=== PATIENT | male | born 1975 | race Caucasian/White ===

== ENCOUNTER 2017-09-12 13:13 | Emergency (ER) | payer MEDICAID ==
[2017-09-12] MEDS: METOCLOPRAMIDE 10 MG TAB PO (14:14)
[2017-09-12] MEDS: KETOROLAC TROMETHAMINE 10 MG TAB PO (14:14)
== END 2017-09-12 15:23 | disposition home or self-care (01) ==
LOC: M ED 13:13
DX: Z76.0 Encounter for issue of repeat prescription (principal); G44.209 Tension-type headache, unspecified, not intractable; I10 Essential (primary) hypertension; J45.909 Unspecified asthma, uncomplicated; Z72.0 Tobacco use; Z79.899 Other long term (current) drug therapy
CPT/HCPCS: 99283

== ENCOUNTER 2017-11-07 20:20 | Emergency (ER) | payer MEDICAID ==
[2017-11-07 22:10] LABS: ALBUMIN 3.8 GM/DL (3.2-5.2); ALBUMIN/GLOBULIN RATIO 1.36 (1.00-1.93); ALKALINE PHOSPHATASE 97 U/L (45-117); ALT/SGPT 30 U/L (12-78); ANION GAP 6 MEQ/L (8-16); AST/SGOT 17 U/L (7-37); BILIRUBIN,DIRECT < 0.1 MG/DL (0.0-0.2); BILIRUBIN,TOTAL 0.4 MG/DL (0.2-1.0); BLOOD UREA NITROGEN 17 MG/DL (7-18); CALCIUM LEVEL 8.4 MG/DL (8.5-10.1); CARBON DIOXIDE LEVEL 29 MEQ/L (21-32); CHLORIDE LEVEL 109 MEQ/L (98-107); CPK CREATINE PHOSPHOKINASE 170 U/L (39-308); CREATININE FOR GFR 0.92 MG/DL (0.70-1.30); GLOMERULAR FILTRATION RATE > 60.0 (>60); GLUCOSE, FASTING 89 MG/DL (70-100); SODIUM LEVEL 144 MEQ/L (136-145); TOTAL PROTEIN 6.6 GM/DL (6.4-8.2)
[2017-11-07] MEDS: LISINOPRIL 5 MG TAB PO (22:27)
== END 2017-11-07 22:38 | disposition home or self-care (01) ==
LOC: M ED 20:20
DX: R60.0 Localized edema (principal); I10 Essential (primary) hypertension; Z76.0 Encounter for issue of repeat prescription; J45.909 Unspecified asthma, uncomplicated; Z72.0 Tobacco use; Z79.899 Other long term (current) drug therapy
CPT/HCPCS: 82550

== ENCOUNTER 2017-11-16 01:57 | Emergency (ER) | payer MEDICAID ==
[2017-11-16] MEDS ORDERED: cloNIDine 0.2 MG TAB PO (04:30)
== END 2017-11-16 05:45 | disposition home or self-care (01) ==
LOC: M ED 01:57
DX: R22.43 Localized swelling, mass and lump, lower limb, bilateral (principal); I10 Essential (primary) hypertension; J45.909 Unspecified asthma, uncomplicated; Z79.899 Other long term (current) drug therapy
CPT/HCPCS: 99283

== ENCOUNTER 2017-11-30 17:50 | Emergency (ER) | payer MEDICAID | END 2017-11-30 23:46 | disposition home or self-care (01) | LOC: M ED 17:50 | DX: M79.89 Other specified soft tissue disorders (principal); I10 Essential (primary) hypertension; J45.909 Unspecified asthma, uncomplicated; Z72.0 Tobacco use; Z82.49 Family history of ischemic heart disease and other diseases of the circulatory system | CPT/HCPCS: 73630 ==

== ENCOUNTER 2017-12-21 08:56 | Emergency (ER) | payer MEDICAID | END 2017-12-21 09:34 | disposition home or self-care (01) | LOC: M ED 08:56 | DX: Z76.0 Encounter for issue of repeat prescription (principal); I10 Essential (primary) hypertension; J45.909 Unspecified asthma, uncomplicated; Z79.899 Other long term (current) drug therapy | CPT/HCPCS: 99282 ==

== ENCOUNTER 2017-12-30 09:57 | Emergency (ER) | payer MEDICAID ==
[2017-12-30] MEDS: IPRATROPIUM 0.5MG/ALBUTEROL 2.5MG INH SOL UD 3ML (DUONEB)(J7620) NEB (10:50)
[2017-12-30] MEDS: ALBUTEROL SULFATE 2.5 MG/0.5 ML INH NEB SOLN NEB (10:50)
== END 2017-12-30 11:48 | disposition home or self-care (01) ==
LOC: M ED 09:57
DX: J45.901 Unspecified asthma with (acute) exacerbation (principal); J20.9 Acute bronchitis, unspecified; J45.909 Unspecified asthma, uncomplicated; I10 Essential (primary) hypertension; Z98.890 Other specified postprocedural states; Z87.891 Personal history of nicotine dependence; Z79.899 Other long term (current) drug therapy
CPT/HCPCS: 71046

== ENCOUNTER 2018-01-11 20:05 | Emergency (ER) | payer MEDICAID ==
[2018-01-12] MEDS: ACETAMINOPHEN 325 MG TAB PO (01:34)
== END 2018-01-12 01:39 | disposition home or self-care (01) ==
LOC: M ED 20:05
DX: R60.0 Localized edema (principal); I10 Essential (primary) hypertension; J45.909 Unspecified asthma, uncomplicated; Z79.899 Other long term (current) drug therapy; F17.210 Nicotine dependence, cigarettes, uncomplicated
CPT/HCPCS: 99283

== ENCOUNTER 2018-01-26 09:08 | Emergency (ER) | payer MEDICAID | END 2018-01-26 09:48 | disposition home or self-care (01) | LOC: M ED 09:08 | DX: Z76.0 Encounter for issue of repeat prescription (principal); I10 Essential (primary) hypertension; J45.909 Unspecified asthma, uncomplicated; Z79.899 Other long term (current) drug therapy | CPT/HCPCS: 99282 ==

== ENCOUNTER 2018-04-13 10:16 | Emergency (ER) | payer MEDICAID | END 2018-04-13 11:02 | disposition home or self-care (01) | LOC: M ED 10:16 | DX: Z76.0 Encounter for issue of repeat prescription (principal); I10 Essential (primary) hypertension; J45.909 Unspecified asthma, uncomplicated; Z79.899 Other long term (current) drug therapy | CPT/HCPCS: 99283 ==

== ENCOUNTER 2018-05-22 21:26 | Emergency (ER) | payer MEDICAID ==
[~2018-05-22] VITALS: Ht 167.6 cm; Wt 68.2 kg
[~2018-05-22 21:26] MED LIST: KETO10TAB PO; LISI-542 PO; PROAAER10 INH; REGL10TA6 PO; VENTAER INH; ZITHTAB PO
[2018-05-22] MEDS ORDERED: PROAAER10 INH (22:54)
[2018-05-22] MEDS ORDERED: LISI-542 PO (22:54)
[2018-05-22 22:57] VITALS: BP 138/62
== END 2018-05-22 23:10 | disposition home or self-care (01) ==
LOC: M ED 21:26
DX: Z76.0 Encounter for issue of repeat prescription (principal); I11.9 Hypertensive heart disease without heart failure; J45.909 Unspecified asthma, uncomplicated; Z79.899 Other long term (current) drug therapy

== ENCOUNTER 2019-05-24 06:36 | Emergency (ER) | payer MEDICAID, OTHER ==
[~2019-05-24] VITALS: Ht 167.6 cm; Wt 72.7 kg
[2019-05-24 06:36] VITALS: BP 141/82
[2019-05-24] MEDS ORDERED: LISI-542 PO (07:10)
[2019-05-24] MEDS ORDERED: PROAAER10 INH (07:12)
== END 2019-05-24 07:20 | disposition home or self-care (01) ==
LOC: M ED 06:36
DX: Z76.0 Encounter for issue of repeat prescription (principal); I10 Essential (primary) hypertension; M54.9 Dorsalgia, unspecified; Z79.899 Other long term (current) drug therapy

== ENCOUNTER 2019-06-03 22:03 | Emergency (ER) | payer MEDICAID ==
[~2019-06-03] VITALS: Ht 167.6 cm; Wt 88.4 kg
[2019-06-04] MEDS ORDERED: ALBUTEROL 90 MCG/ACT 8GM HFA INHALER INH ONE
[2019-06-04 00:17] VITALS: BP 173/92
== END 2019-06-04 00:23 | disposition home or self-care (01) ==
LOC: M ED 22:03
DX: Z76.0 Encounter for issue of repeat prescription (principal); J45.909 Unspecified asthma, uncomplicated; Z79.899 Other long term (current) drug therapy; Z87.891 Personal history of nicotine dependence

== ENCOUNTER 2019-09-25 23:51 | Emergency (ER) | payer MEDICAID ==
[~2019-09-25] VITALS: Ht 167.6 cm; Wt 77.3 kg
[2019-09-26] MEDS ORDERED: ACETAMINOPHEN 500 MG TAB PO ONE (00:45)
--- NOTE | 2019-09-26 01:03 | REP ---
Clinical: Trauma. Technique: AP and lateral views of the left forearm. Findings: Osseous structures, joint spaces, and surrounding soft tissues are normal. No acute fracture dislocation. No subcutaneous emphysema or foreign body. Impression: Normal left forearm. No acute fracture or dislocation. Electronically Signed by Hector Green MD 09/26/2019 12:54 A
[2019-09-26 01:53] VITALS: BP 116/84
--- NOTE | 2019-09-27 12:16 | REP ---
REASON FOR EXAM: Trauma. There are no priors for comparison. Preliminary report is given by [facility] at the time the exam was performed. The ventricles and sulci are within normal limits. There are no extra-axial fluid collections. The deep cerebral white matter is within normal limits. The sella turcica, cavernous, and paracavernous structures are within normal limits. The cerebellopontine angles and posterior fossa are within normal limits. There is no skull fracture. There is soft tissue density in the maxillary sinuses and ethmoid bulla bilaterally, right greater than left and with a possible small right maxillary sinus air-fluid level. The mastoid air cells are clear. IMPRESSION: Mucosal thickening and suspected sinusitis as described above. There is no acute intracranial pathology. Electronically Signed by David Dias DO 09/27/2019 01:00 P
--- NOTE | 2019-09-27 12:34 | REP ---
REASON: Trauma. Preliminary report given by [employer] at the time the exam was performed. Soft tissue density obstructs the ostiomeatal complex bilaterally. Soft tissue densities are seen in each of the maxillary sinuses, right greater than left. Patchy soft tissue densities seen throughout the ethmoid bulla. The sphenoid sinuses and frontal sinuses are clear. The hiatus semilunaris on the right is well demarcated but indistinct on the left. The cribriform plate and ngozi anjali are intact. There is no evidence of lysis or sclerosis of the bony architecture surrounding the paranasal sinuses. There is no evidence of an acute fracture. There is right periorbital soft tissue swelling. The ocular globes are intact and the gaze is conjugant. IMPRESSION: 1. Paranasal sinus disease and related findings as described above. 2. No evidence of an acute fracture. 3. Right periorbital soft tissue swelling. Electronically Signed by David Dias DO 09/27/2019 01:01 P
== END 2019-09-26 01:59 | disposition home or self-care (01) ==
LOC: M ED 23:51
DX: T14.8XXA Other injury of unspecified body region, initial encounter (principal); Y04.8XXA Assault by other bodily force, initial encounter; Y92.89 Other specified places as the place of occurrence of the external cause; I10 Essential (primary) hypertension; J45.909 Unspecified asthma, uncomplicated; Z79.899 Other long term (current) drug therapy

== ENCOUNTER 2020-07-26 04:51 | Emergency (ER) | payer OTHER ==
[~2020-07-26] VITALS: Ht 167.6 cm; Wt 102.7 kg
[~2020-07-26 04:51] MED LIST changes: -LISI-542 PO; +LISI-898 PO
[2020-07-26] MEDS ORDERED: ALBU83IN NEB (07:08)
[2020-07-26] MEDS ORDERED: PROAAER10 INH (07:08)
[2020-07-26 07:16] VITALS: BP 158/80
== END 2020-07-26 07:16 | disposition home or self-care (01) ==
LOC: M ED 04:51
DX: R22.32 Localized swelling, mass and lump, left upper limb (principal); Z76.0 Encounter for issue of repeat prescription; I10 Essential (primary) hypertension; J45.909 Unspecified asthma, uncomplicated; M54.9 Dorsalgia, unspecified

== ENCOUNTER 2021-02-03 14:20 | Emergency (ER) | payer OTHER ==
[~2021-02-03] VITALS: Ht 167.6 cm; Wt 93.9 kg
[2021-02-03 14:20] VITALS: BP 139/80
[~2021-02-03 14:20] MED LIST changes: +ALBU83IN NEB
[2021-02-03] MEDS ORDERED: ALBU83IN NEB (14:46)
[2021-02-03] MEDS ORDERED: PROAAER10 INH (14:46)
== END 2021-02-03 15:09 | disposition home or self-care (01) ==
LOC: M ED 14:20
DX: Z76.0 Encounter for issue of repeat prescription (principal); I10 Essential (primary) hypertension; J45.909 Unspecified asthma, uncomplicated; Z79.899 Other long term (current) drug therapy

== ENCOUNTER 2022-07-17 17:04 | Emergency (ER) | payer OTHER ==
[~2022-07-17] VITALS: Ht 167.6 cm; Wt 94.5 kg
[2022-07-17 17:04] VITALS: BP 170/93
[~2022-07-17 17:04] MED LIST changes: +ALBU2.5V10 NEB; -ALBU83IN NEB; -LISI-898 PO; +LISI5TAB11 PO
[2022-07-18] MEDS ORDERED: ALBU2.5V10 NEB (06:33)
[2022-07-18] MEDS ORDERED: VENTAER INH (07:35)
== END 2022-07-17 21:05 | disposition left against medical advice (07) ==
LOC: M ED 17:04
DX: Z53.21 Procedure and treatment not carried out due to patient leaving prior to being seen by health care provider (principal)

== ENCOUNTER 2022-07-18 03:42 | Emergency (ER) | payer OTHER ==
[~2022-07-18] VITALS: Ht 167.6 cm; Wt 94.6 kg
[2022-07-18] MEDS ORDERED: ALBU2.5V10 NEB (06:33)
[2022-07-18 07:00] VITALS: BP 142/86
[2022-07-18] MEDS ORDERED: VENTAER INH (07:35)
== END 2022-07-18 07:05 | disposition home or self-care (01) ==
LOC: M ED 03:42
DX: Z76.0 Encounter for issue of repeat prescription (principal); J45.909 Unspecified asthma, uncomplicated

== ENCOUNTER 2022-10-21 01:12 | Emergency (ER) | payer MEDICAID, OTHER ==
[~2022-10-21] VITALS: Ht 167.6 cm; Wt 90.9 kg
[2022-10-21 01:13] VITALS: BP 147/75; TEMP 97.1; O2SAT 97
[2022-10-21] MEDS ORDERED: ALBU6.7H6 INH (01:41)
[2022-10-21] MEDS ORDERED: ALBU2.5V10 NEB (01:41)
== END 2022-10-21 02:03 | disposition home or self-care (01) ==
LOC: M ED 01:12
DX: Z76.0 Encounter for issue of repeat prescription (principal); I10 Essential (primary) hypertension; J45.909 Unspecified asthma, uncomplicated; J30.2 Other seasonal allergic rhinitis

== ENCOUNTER 2023-05-24 12:08 | Emergency (ER) | payer OTHER ==
[~2023-05-24] VITALS: Ht 167.6 cm; Wt 94.7 kg
[~2023-05-24 12:08] MED LIST changes: +ALBU6.7H6 INH
[2023-05-24 12:09] VITALS: BP 140/88; TEMP 97.9; O2SAT 99
[2023-05-24] MEDS ORDERED: VENTAER INH (12:38)
[2023-05-24] MEDS ORDERED: ALBU2.5V10 NEB (12:38)
[2023-05-24] MEDS ORDERED: PRED20TA PO (12:38)
== END 2023-05-24 12:50 | disposition home or self-care (01) ==
LOC: M ED 12:08
DX: M75.52 Bursitis of left shoulder (principal); J45.909 Unspecified asthma, uncomplicated; I10 Essential (primary) hypertension; M54.50 Low back pain, unspecified; Z76.0 Encounter for issue of repeat prescription; F17.200 Nicotine dependence, unspecified, uncomplicated; Z79.52 Long term (current) use of systemic steroids

== ENCOUNTER 2024-03-11 17:48 | Emergency (ER) | payer OTHER ==
[~2024-03-11] VITALS: Ht 167.6 cm; Wt 95.7 kg
[~2024-03-11 17:48] MED LIST changes: +PRED20TA PO
[2024-03-11 17:57] VITALS: TEMP 97.5
[2024-03-11 18:32] VITALS: O2SAT 98
[2024-03-11 20:10] VITALS: BP 172/104
[2024-03-11] MEDS ORDERED: ALBU2.5V10 NEB (20:10)
[2024-03-11] MEDS ORDERED: VENTAER INH (20:10)
== END 2024-03-11 20:17 | disposition left against medical advice (07) ==
LOC: M ED 17:48
DX: R04.0 Epistaxis (principal); I10 Essential (primary) hypertension; J45.909 Unspecified asthma, uncomplicated; F17.200 Nicotine dependence, unspecified, uncomplicated; Z79.52 Long term (current) use of systemic steroids; Z53.9 Procedure and treatment not carried out, unspecified reason

== ENCOUNTER 2024-05-03 11:06 | Emergency (ER) | payer OTHER ==
[~2024-05-03] VITALS: Ht 167.6 cm; Wt 95.6 kg
[2024-05-03 11:08] VITALS: TEMP 97.2; O2SAT 98
[2024-05-03] MEDS ORDERED: VENTAER INH (14:00)
[2024-05-03] MEDS ORDERED: DOXY-441 PO (14:00)
[2024-05-03] MEDS ORDERED: IBUP-1022 PO (14:00)
[2024-05-03 14:11] VITALS: BP 176/109
== END 2024-05-03 14:13 | disposition home or self-care (01) ==
LOC: M ED 11:06
DX: L66.2 Folliculitis decalvans (principal); I10 Essential (primary) hypertension; J45.909 Unspecified asthma, uncomplicated; F17.200 Nicotine dependence, unspecified, uncomplicated; Z79.52 Long term (current) use of systemic steroids; Z79.899 Other long term (current) drug therapy; Z79.1 Long term (current) use of non-steroidal anti-inflammatories (NSAID)

== ENCOUNTER → 2024-05-16 | Outpatient (REF) | payer OTHER, MEDICAID ==
[~2024-05-16] MED LIST changes: +DOXY-441 PO; +IBUP-1022 PO
[2024-05-16 13:49] LABS: THYROID STIMULATING HORMONE 5.667 uIU/ML (0.55-4.78)
[2024-05-16 13:50] LABS: ALKALINE PHOSPHATASE 122 U/L (40-129); ALT/SGPT 32 U/L (7.0-40); AST/SGOT 20 U/L (<34); BILIRUBIN,TOTAL 0.5 MG/DL (0.3-1.2); BLOOD UREA NITROGEN 23 MG/DL (9-23); CALCIUM LEVEL 9.7 MG/DL (8.5-10.1); CARBON DIOXIDE LEVEL 28 MMOL/L (20-31); CHLORIDE LEVEL 107 MMOL/L (98-107); CHOLESTEROL LEVEL 252 MG/DL (<200); CHOLESTEROL RISK RATIO 6.84 (<5); CREATININE FOR GFR 1.15 MG/DL (0.70-1.30); GLOMERULAR FILTRATION RATE > 60.0 (>60); GLUCOSE, FASTING 91 MG/DL (60-100); HDL CHOLESTEROL 36.8 MG/DL (>40); LDL CHOLESTEROL 173.8 MG/DL (<100); NON-HDL-C 215.2 MG/DL; POTASSIUM SERUM 4.9 MMOL/L (3.5-5.1); SODIUM LEVEL 142 MMOL/L (136-145); TOTAL PROTEIN 7.3 G/DL (5.7-8.2); TRIGLYCERIDES LEVEL 207 MG/DL (<150)
[2024-05-16 14:15] LABS: CREATININE, URINE 106.8 MG/DL; MAU/CREAT RATIO 16.8 MCG/MG (0.0-30.0)
== END ==
LOC: M LAB REF 12:48
PROVIDERS: ATTEND Physician Assistant
DX: I10 Essential (primary) hypertension (principal)

== ENCOUNTER → 2024-05-25 | Outpatient (REF) | payer OTHER, MEDICAID ==
[2024-05-25 15:49] LABS: HEMOGLOBIN A1c 5.2 % (4.0-6.0)
[2024-05-25 15:52] LABS: THYROXINE (T4) 6.1 UG/DL (4.5-10.9)
[2024-05-25 15:54] LABS: THYROID STIMULATING HORMONE 7.933 uIU/ML (0.55-4.78)
[2024-05-25 15:56] LABS: THYROID PEROXIDASE ANTIBODY 32 U/ML (<60.0)
[2024-05-25 15:57] LABS: FREE THYROXINE INDEX 1.9 % (1.4-3.8); T UPTAKE 30.8 % (22.5-37.0)
[2024-05-25 16:18] LABS: HIV 1&2 SCREEN NEGATIVE (NEGATIVE)
[2024-05-25 16:24] LABS: HEPATITIS C VIRUS ABY INDEX < 0.02 INDEX (<0.8)
== END ==
LOC: M LAB REF 13:18
PROVIDERS: ATTEND Physician Assistant
DX: E03.9 Hypothyroidism, unspecified (principal); Z11.9 Encounter for screening for infectious and parasitic diseases, unspecified

== ENCOUNTER → 2024-06-06 | Outpatient (CLI) | payer OTHER | LOC: M CARPUL 08:13 | PROVIDERS: ATTEND Physician Assistant | DX: J45.30 Mild persistent asthma, uncomplicated (principal) ==

== ENCOUNTER → 2024-06-20 | Outpatient (CLI) | payer OTHER | LOC: M RAD 14:56 | PROVIDERS: ATTEND Physician Assistant | DX: E03.9 Hypothyroidism, unspecified (principal) ==

== ENCOUNTER → 2024-08-16 | Outpatient (CLI) | payer OTHER ==
[~2024-08-16] MED LIST changes: +ISOVUE-370 76% 100ML VIAL As Ordered ONE
== END ==
LOC: M RAD 12:32
PROVIDERS: ATTEND Physician Assistant
DX: R13.19 Other dysphagia (principal)
CPT/HCPCS: 71046; 71260; Q9967

== ENCOUNTER → 2024-08-16 | Outpatient (REF) | payer OTHER ==
[~2024-08-16] MED LIST changes: -ISOVUE-370 76% 100ML VIAL As Ordered ONE
[2024-08-16 14:05] LABS: BASO # 0.1 10^3/uL (0.0-0.2); BASO % 1.4 % (0.0-1.0); EOS # 0.5 10^3/uL (0.0-0.5); EOS % 5.2 % (0.0-3.0); HEMATOCRIT 45.5 % (42.0-52.0); HEMOGLOBIN 15.1 g/dl (13.5-17.5); LIPASE 151 U/L (12-53); LYMPH # 3.3 10^3/uL (1.5-5.0); LYMPH % 35.2 % (24.0-44.0); MEAN CORPUSCULAR HEMOGLOBIN 30.1 pg (27.0-33.0); MEAN CORPUSCULAR HGB CONC 33.2 g/dl (32.0-36.5); MEAN CORPUSCULAR VOLUME 90.6 fl (80.0-96.0); MONO # 0.6 10^3/uL (0.0-0.8); MONO % 6.3 % (2.0-8.0); NEUTROPHILS # 4.8 10^3/uL (1.5-8.5); NEUTROPHILS % 51.4 % (36.0-66.0); PLATELET COUNT, AUTOMATED 266 10^3/uL (150-450); RED BLOOD COUNT 5.02 10^6/uL (4.30-6.10); WHITE BLOOD COUNT 9.2 10^3/uL (4.0-10.0)
[2024-08-16 14:07] LABS: ALBUMIN 4.1 G/DL (3.2-5.2); ALKALINE PHOSPHATASE 112 U/L (40-129); ALT/SGPT 41 U/L (7.0-40); AST/SGOT 22 U/L (<34); BILIRUBIN,TOTAL 0.5 MG/DL (0.3-1.2); BLOOD UREA NITROGEN 15 MG/DL (9-23); CALCIUM LEVEL 9.5 MG/DL (8.5-10.1); CARBON DIOXIDE LEVEL 32 MMOL/L (20-31); CHLORIDE LEVEL 106 MMOL/L (98-107); CREATININE FOR GFR 0.93 MG/DL (0.70-1.30); GLOMERULAR FILTRATION RATE > 90.0 (>60); GLUCOSE, FASTING 102 MG/DL (60-100); POTASSIUM SERUM 4.4 MMOL/L (3.5-5.1); SODIUM LEVEL 143 MMOL/L (136-145); TOTAL PROTEIN 6.9 G/DL (5.7-8.2)
== END ==
LOC: M LAB REF 13:37
PROVIDERS: ATTEND Physician Assistant
DX: R13.19 Other dysphagia (principal)

== ENCOUNTER 2024-09-04 19:37 | Emergency (ER) | payer OTHER ==
[~2024-09-04] VITALS: Ht 167.6 cm; Wt 98.0 kg
[2024-09-04 19:39] VITALS: TEMP 97.3; O2SAT 97
[2024-09-04 19:55] VITALS: BP 168/110
== END 2024-09-04 23:08 | disposition left against medical advice (07) ==
LOC: M ED 19:37
DX: Z53.21 Procedure and treatment not carried out due to patient leaving prior to being seen by health care provider (principal)

== ENCOUNTER → 2024-09-13 | Outpatient (REF) | payer OTHER | LOC: M LAB REF 12:03 | PROVIDERS: ATTEND Physician Assistant | DX: J02.9 Acute pharyngitis, unspecified (principal) ==

== ENCOUNTER 2024-10-26 18:14 | Emergency (ER) | payer OTHER ==
[~2024-10-26] VITALS: Ht 167.6 cm; Wt 96.5 kg
[~2024-10-26 18:14] MED LIST changes: +ALBU8.5H INH; +AMLO1TAB24 PO; +ATOR1TAB21 PO; +DICL100G10 TOP; +FAMO40TA3 PO; +LEVO25TA5 PO; +LISI40TA10 PO; +METH-1165 PO; +OXYC1TAB23 PO; +PERC5TAB12 PO; +SUCR1TAB56 PO
[2024-10-26 18:19] VITALS: TEMP 98.8
[2024-10-26 19:14] LABS: BASO # 0.1 10^3/uL (0.0-0.2); BASO % 0.4 % (0.0-1.0); EOS # 0.3 10^3/uL (0.0-0.5); EOS % 1.8 % (0.0-3.0); LYMPH # 4.2 10^3/uL (1.5-5.0); LYMPH % 23.8 % (24.0-44.0); MONO # 1.2 10^3/uL (0.0-0.8); MONO % 6.7 % (2.0-8.0); NEUTROPHILS # 11.6 10^3/uL (1.5-8.5); NEUTROPHILS % 66.8 % (36.0-66.0); PLATELET COUNT, AUTOMATED 309 10^3/uL (150-450)
[2024-10-26 19:33] LABS: ALT/SGPT 38 U/L (7.0-40); AST/SGOT 20 U/L (<34); CALCIUM LEVEL 9.8 MG/DL (8.5-10.1); CARBON DIOXIDE LEVEL 26 MMOL/L (20-31); CHLORIDE LEVEL 106 MMOL/L (98-107); CREATININE FOR GFR 0.85 MG/DL (0.70-1.30); GLOMERULAR FILTRATION RATE > 90.0 (>60); POTASSIUM SERUM 4.0 MMOL/L (3.5-5.1); SODIUM LEVEL 145 MMOL/L (136-145)
[2024-10-26] MEDS ORDERED: ISOVUE-370 76% 100 ML VIAL As Ordered ONE (19:51)
[2024-10-26 20:25] LABS: MAGNESIUM LEVEL 2.2 MG/DL (1.8-2.4)
[2024-10-26 20:26] LABS: CK-MB VALUE MASS 2.3 NG/ML (<3.6)
[2024-10-26 20:36] LABS: CPK CREATINE PHOSPHOKINASE 107 U/L (46-171); MB/CK RELATIVE INDEX 2.14 (< OR =4)
[2024-10-26] MEDS ORDERED: HOLTER MONITOR XX (22:20)
[2024-10-26 22:33] VITALS: O2SAT 96
[2024-10-26 22:47] VITALS: BP 165/86
== END 2024-10-26 22:49 | disposition home or self-care (01) ==
LOC: M ED 18:14
DX: R55 Syncope and collapse (principal); S00.03XA Contusion of scalp, initial encounter; W01.198A Fall on same level from slipping, tripping and stumbling with subsequent striking against other object, initial encounter; M50.30 Other cervical disc degeneration, unspecified cervical region; M25.78 Osteophyte, vertebrae; J45.909 Unspecified asthma, uncomplicated; F17.200 Nicotine dependence, unspecified, uncomplicated; Z88.8 Allergy status to other drugs, medicaments and biological substances; Z79.52 Long term (current) use of systemic steroids; Z79.02 Long term (current) use of antithrombotics/antiplatelets; Z79.899 Other long term (current) drug therapy; Y92.9 Unspecified place or not applicable; Y93.89 Activity, other specified; Y99.9 Unspecified external cause status
CPT/HCPCS: 36415; 70450; 71275; 72125; 80053; 82550; 82553; 83735; 84443; 84484; 85025; 93005; 93880; 99284; Q9967

== ENCOUNTER → 2024-10-27 | Outpatient (CLI) | payer OTHER ==
[~2024-10-27] MED LIST changes: +HOLTER MONITOR XX
== END ==
LOC: M EKG 07:45
PROVIDERS: ATTEND Emergency Medicine
DX: R55 Syncope and collapse (principal); R00.2 Palpitations; Z53.9 Procedure and treatment not carried out, unspecified reason

== ENCOUNTER 2025-01-16 12:00 | Outpatient (RCR) | payer OTHER ==
[~2025-01-16 12:00] MED LIST changes: -IBUP-1022 PO; +IBUP600T42 PO
== END 2025-01-24 ==
LOC: M PT 12:00
PROVIDERS: ATTEND Neuromusculoskeletal Medicine, Sports Medicine
DX: M25.512 Pain in left shoulder (principal)

== ENCOUNTER 2025-02-09 12:00 | Outpatient (RCR) | payer OTHER | END 2025-02-24 | LOC: M PT 12:00 | PROVIDERS: ATTEND Neuromusculoskeletal Medicine, Sports Medicine | DX: M25.512 Pain in left shoulder (principal) ==

== ENCOUNTER 2025-04-03 09:22 | Emergency (ER) | payer OTHER ==
[~2025-04-03] VITALS: Ht 167.6 cm; Wt 97.4 kg
[2025-04-03 10:24] LABS: CALCIUM LEVEL 9.0 MG/DL (8.5-10.1); CARBON DIOXIDE LEVEL 31 MMOL/L (20-31); CHLORIDE LEVEL 105 MMOL/L (98-107); CREATININE FOR GFR 0.99 MG/DL (0.70-1.30); GLOMERULAR FILTRATION RATE > 90.0 (>60); POTASSIUM SERUM 3.9 MMOL/L (3.5-5.1); SODIUM LEVEL 141 MMOL/L (136-145)
[2025-04-03] MEDS: PERCOCET 5MG/325MG TAB PO ONE (12:03)
[2025-04-03 12:38] VITALS: BP 140/93; TEMP 97.6; O2SAT 99
== END 2025-04-03 12:41 | disposition home or self-care (01) ==
LOC: M ED 09:22
DX: I10 Essential (primary) hypertension (principal); J01.00 Acute maxillary sinusitis, unspecified; J45.909 Unspecified asthma, uncomplicated; E78.5 Hyperlipidemia, unspecified; E03.9 Hypothyroidism, unspecified; F17.200 Nicotine dependence, unspecified, uncomplicated; Z88.8 Allergy status to other drugs, medicaments and biological substances; Z79.52 Long term (current) use of systemic steroids; Z79.899 Other long term (current) drug therapy

== ENCOUNTER 2025-04-06 13:12 | Emergency (ER) | payer OTHER ==
[~2025-04-06] VITALS: Ht 167.6 cm; Wt 97.2 kg
[2025-04-06] MEDS ORDERED: MECL-86 PO (13:25)
[2025-04-06] MEDS ORDERED: LEVO50TA5 PO (13:25)
[2025-04-06] MEDS ORDERED: AMLO1TAB25 PO (13:25)
[2025-04-06] MEDS ORDERED: PANT40TA29 PO (13:25)
[2025-04-06] MEDS ORDERED: ADVA1AER8 INH (13:25)
[2025-04-06] MEDS ORDERED: HYDR50TAB PO (13:25)
[2025-04-06 14:28] LABS: BASO # 0.1 10^3/uL (0.0-0.2); BASO % 1.3 % (0.0-1.0); EOS # 0.5 10^3/uL (0.0-0.5); EOS % 5.5 % (0.0-3.0); LYMPH # 2.8 10^3/uL (1.5-5.0); LYMPH % 32.3 % (24.0-44.0); MONO # 0.5 10^3/uL (0.0-0.8); MONO % 6.1 % (2.0-8.0); NEUTROPHILS # 4.7 10^3/uL (1.5-8.5); NEUTROPHILS % 54.3 % (36.0-66.0); PLATELET COUNT, AUTOMATED 288 10^3/uL (150-450)
[2025-04-06 14:50] LABS: ALT/SGPT 36 U/L (7.0-40); AST/SGOT 32 U/L (<34); CALCIUM LEVEL 9.2 MG/DL (8.5-10.1); CARBON DIOXIDE LEVEL 30 MMOL/L (20-31); CHLORIDE LEVEL 107 MMOL/L (98-107); CREATININE FOR GFR 1.01 MG/DL (0.70-1.30); GLOMERULAR FILTRATION RATE > 90.0 (>60); POTASSIUM SERUM 4.3 MMOL/L (3.5-5.1); SODIUM LEVEL 144 MMOL/L (136-145)
[2025-04-06 15:00] VITALS: BP 132/78
[2025-04-06 15:12] VITALS: O2SAT 96
[2025-04-06 15:22] VITALS: TEMP 97.8
[2025-04-07] MEDS ORDERED: MIRA3350 PO (15:17)
[2025-04-07] MEDS ORDERED: PERCOCET PO (15:17)
== END 2025-04-06 16:00 | disposition left against medical advice (07) ==
LOC: M ED 13:12
DX: Z53.21 Procedure and treatment not carried out due to patient leaving prior to being seen by health care provider (principal)

== ENCOUNTER 2025-04-07 10:05 | Emergency (ER) | payer OTHER ==
[~2025-04-07] VITALS: Ht 167.6 cm; Wt 97.5 kg
[~2025-04-07 10:05] MED LIST changes: +ADVA1AER8 INH; +AMLO1TAB25 PO; +HYDR50TAB PO; +LEVO50TA5 PO; +MECL-86 PO; +PANT40TA29 PO
[2025-04-07 11:06] LABS: BASO # 0.1 10^3/uL (0.0-0.2); BASO % 1.2 % (0.0-1.0); EOS # 0.5 10^3/uL (0.0-0.5); EOS % 5.5 % (0.0-3.0); LYMPH # 3.1 10^3/uL (1.5-5.0); LYMPH % 34.5 % (24.0-44.0); MONO # 0.5 10^3/uL (0.0-0.8); MONO % 5.5 % (2.0-8.0); NEUTROPHILS # 4.7 10^3/uL (1.5-8.5); NEUTROPHILS % 53.0 % (36.0-66.0); PLATELET COUNT, AUTOMATED 275 10^3/uL (150-450)
[2025-04-07 11:09] LABS: ALT/SGPT 39 U/L (7.0-40); AST/SGOT 30 U/L (<34); CALCIUM LEVEL 9.0 MG/DL (8.5-10.1); CARBON DIOXIDE LEVEL 27 MMOL/L (20-31); CHLORIDE LEVEL 109 MMOL/L (98-107); CREATININE FOR GFR 0.97 MG/DL (0.70-1.30); GLOMERULAR FILTRATION RATE > 90.0 (>60); POTASSIUM SERUM 4.1 MMOL/L (3.5-5.1); SODIUM LEVEL 143 MMOL/L (136-145)
[2025-04-07 12:05] VITALS: TEMP 97
[2025-04-07 14:00] LABS: CK-MB VALUE MASS 5.5 NG/ML (<3.6)
[2025-04-07 14:01] LABS: CPK CREATINE PHOSPHOKINASE 325 U/L (46-171); MB/CK RELATIVE INDEX 1.69 (< OR =4)
[2025-04-07] MEDS: PERCOCET 5MG/325MG TAB PO ONE (14:01)
[2025-04-07] MEDS ORDERED: HOME MED LIST COMPLETE! XX SCH (14:25)
[2025-04-07 14:31] LABS: CK-MB VALUE MASS 5.1 NG/ML (<3.6)
[2025-04-07 14:32] LABS: CPK CREATINE PHOSPHOKINASE 268.0 U/L (46-171); MB/CK RELATIVE INDEX 1.9 (< OR =4)
[2025-04-07 15:10] VITALS: BP 170/100; O2SAT 99
[2025-04-07] MEDS ORDERED: PERCOCET PO (15:17)
[2025-04-07] MEDS ORDERED: MIRA3350 PO (15:17)
== END 2025-04-07 15:25 | disposition home or self-care (01) ==
LOC: M ED 10:05
DX: I10 Essential (primary) hypertension (principal); M25.512 Pain in left shoulder; Z88.8 Allergy status to other drugs, medicaments and biological substances; Z79.52 Long term (current) use of systemic steroids; Z79.899 Other long term (current) drug therapy; Z79.02 Long term (current) use of antithrombotics/antiplatelets

== ENCOUNTER 2025-04-10 06:32 | Emergency (ER) | payer OTHER ==
[~2025-04-10] VITALS: Ht 167.6 cm; Wt 97.0 kg
[~2025-04-10 06:32] MED LIST changes: +MIRA3350 PO; +PERCOCET PO
[2025-04-10 07:23] LABS: BASO # 0.1 10^3/uL (0.0-0.2); BASO % 1.4 % (0.0-1.0); EOS # 0.8 10^3/uL (0.0-0.5); EOS % 8.7 % (0.0-3.0); LYMPH # 2.8 10^3/uL (1.5-5.0); LYMPH % 29.8 % (24.0-44.0); MONO # 0.7 10^3/uL (0.0-0.8); MONO % 6.8 % (2.0-8.0); NEUTROPHILS # 5.1 10^3/uL (1.5-8.5); NEUTROPHILS % 53.1 % (36.0-66.0); PLATELET COUNT, AUTOMATED 273 10^3/uL (150-450)
[2025-04-10] MEDS ORDERED: ISOVUE-370 76% 100 ML VIAL As Ordered ONE (07:45)
[2025-04-10 07:51] LABS: ALT/SGPT 29 U/L (7.0-40); AST/SGOT 22 U/L (<34); CALCIUM LEVEL 9.5 MG/DL (8.5-10.1); CARBON DIOXIDE LEVEL 28 MMOL/L (20-31); CHLORIDE LEVEL 104 MMOL/L (98-107); CK-MB VALUE MASS 5.0 NG/ML (<3.6); CPK CREATINE PHOSPHOKINASE 253 U/L (46-171); CREATININE FOR GFR 1.02 MG/DL (0.70-1.30); FREE T4 1.02 NG/DL (0.89-1.76); GLOMERULAR FILTRATION RATE > 90.0 (>60); MB/CK RELATIVE INDEX 1.97 (< OR =4); POTASSIUM SERUM 4.4 MMOL/L (3.5-5.1); SODIUM LEVEL 139 MMOL/L (136-145)
[2025-04-10 08:48] LABS: CK-MB VALUE MASS 4.1 NG/ML (<3.6)
[2025-04-10 08:50] LABS: CPK CREATINE PHOSPHOKINASE 216.0 U/L (46-171); MB/CK RELATIVE INDEX 1.89 (< OR =4)
[2025-04-10] MEDS: ACETAMINOPHEN *IV* 1,000 MG in IV 1 EA IV ONE (12:07)
[2025-04-10 12:08] VITALS: BP 129/86; TEMP 97.6; O2SAT 98
[2025-04-10] MEDS ORDERED: OXYC1TAB23 PO (12:13)
[2025-04-10] MEDS ORDERED: MECL-209 PO (12:18)
== END 2025-04-10 12:27 | disposition home or self-care (01) ==
LOC: M ED 06:32
DX: R07.9 Chest pain, unspecified (principal); H81.393 Other peripheral vertigo, bilateral; I49.3 Ventricular premature depolarization; J34.2 Deviated nasal septum; I10 Essential (primary) hypertension; M54.50 Low back pain, unspecified; E78.5 Hyperlipidemia, unspecified; F17.200 Nicotine dependence, unspecified, uncomplicated; Z88.8 Allergy status to other drugs, medicaments and biological substances; Z79.52 Long term (current) use of systemic steroids; Z79.899 Other long term (current) drug therapy; Z79.02 Long term (current) use of antithrombotics/antiplatelets
CPT/HCPCS: 36415; 70450; 70496; 70498; 70551; 71045; 80047; 80048; 80076; 82550; 82553; 83690; 84439; 84443; 84484; 85025; 93005; 93041; 94760; 99285; Q9967

== ENCOUNTER 2025-04-16 17:12 | Emergency (ER) | payer OTHER ==
[~2025-04-16] VITALS: Ht 167.6 cm; Wt 97.2 kg
[~2025-04-16 17:12] MED LIST changes: +MECL-209 PO
[2025-04-16] MEDS ORDERED: ISOVUE-370 76% 100 ML VIAL As Ordered ONE (17:37)
[2025-04-16] MEDS ORDERED: HYDR-3490 (17:53)
[2025-04-16] MEDS ORDERED: SUCR1TAB56 (17:53)
[2025-04-16] MEDS ORDERED: CARV20CA (17:53)
[2025-04-16 18:10] LABS: BASO # 0.1 10^3/uL (0.0-0.2); BASO % 1.3 % (0.0-1.0); EOS # 1.1 10^3/uL (0.0-0.5); EOS % 11.6 % (0.0-3.0); LYMPH # 3.7 10^3/uL (1.5-5.0); LYMPH % 40.1 % (24.0-44.0); MONO # 0.6 10^3/uL (0.0-0.8); MONO % 6.8 % (2.0-8.0); NEUTROPHILS # 3.7 10^3/uL (1.5-8.5); NEUTROPHILS % 39.9 % (36.0-66.0); PLATELET COUNT, AUTOMATED 282 10^3/uL (150-450)
[2025-04-16 18:32] LABS: CALCIUM LEVEL 9.6 MG/DL (8.5-10.1); CARBON DIOXIDE LEVEL 31.0 MMOL/L (20-31); CHLORIDE LEVEL 104.0 MMOL/L (98-107); CREATININE FOR GFR 1.11 MG/DL (0.70-1.30); GLOMERULAR FILTRATION RATE 81.9 (>60); INR 0.9; POTASSIUM SERUM 4.0 MMOL/L (3.5-5.1); SODIUM LEVEL 143.0 MMOL/L (136-145)
[2025-04-16 18:34] LABS: CK-MB VALUE MASS 5.8 NG/ML (<3.6)
[2025-04-16 18:38] LABS: CPK CREATINE PHOSPHOKINASE 270.0 U/L (46-171); MB/CK RELATIVE INDEX 2.14 (< OR =4)
[2025-04-16 19:36] LABS: CK-MB VALUE MASS 4.8 NG/ML (<3.6)
[2025-04-16] MEDS: MECLIZINE 25 MG TABLET PO ONE (19:36)
[2025-04-16 19:38] LABS: CPK CREATINE PHOSPHOKINASE 240.0 U/L (46-171); MB/CK RELATIVE INDEX 2.0 (< OR =4)
[2025-04-16] MEDS ORDERED: MECL-209 PO (20:32)
[2025-04-16] MEDS ORDERED: NAPR-837 PO (20:32)
[2025-04-16 21:12] VITALS: BP 119/73; TEMP 97.2; O2SAT 96
== END 2025-04-16 21:30 | disposition home or self-care (01) ==
LOC: M ED 17:12
DX: H81.4 Vertigo of central origin (principal); M25.512 Pain in left shoulder; I10 Essential (primary) hypertension; E78.5 Hyperlipidemia, unspecified; K21.9 Gastro-esophageal reflux disease without esophagitis; M54.50 Low back pain, unspecified; F17.200 Nicotine dependence, unspecified, uncomplicated; Z88.8 Allergy status to other drugs, medicaments and biological substances
CPT/HCPCS: 36415; 70450; 70496; 70498; 71045; 80047; 80048; 82550; 82553; 84484; 85025; 85610; 85730; 93005; 93041; 94760; 99285; Q9967

== ENCOUNTER 2025-04-24 10:05 | Emergency (ER) | payer OTHER ==
[~2025-04-24 10:05] MED LIST changes: +CARV20CA; +HYDR-3490; +NAPR-837 PO; +SUCR1TAB56
[2025-04-24 10:07] VITALS: BP 112/74; TEMP 98.4; O2SAT 98
[2025-04-24] MEDS ORDERED: IBUP600T42 PO (11:35)
== END 2025-04-24 11:43 | disposition home or self-care (01) ==
LOC: M ED 10:05
DX: S40.012A Contusion of left shoulder, initial encounter (principal); W10.8XXA Fall (on) (from) other stairs and steps, initial encounter; Y92.018 Other place in single-family (private) house as the place of occurrence of the external cause; Y93.89 Activity, other specified; Y99.9 Unspecified external cause status; Z88.8 Allergy status to other drugs, medicaments and biological substances; I11.9 Hypertensive heart disease without heart failure; J45.909 Unspecified asthma, uncomplicated; Z79.899 Other long term (current) drug therapy